=== PATIENT | female | born 1940 | race Caucasian/White ===

== ENCOUNTER 2017-03-20 02:17 | Inpatient (IN) ==
[2017-03-20] MEDS ORDERED: SODIUM CHLORIDE 0.9% 500 ML IV STA (02:52)
--- NOTE | 2017-03-20 02:59 | Emergency Department Note ---
Estelle Quiroz Rolonda, am scribing for, and in the presence of, Chandan Mneeses MD 02:56. Gideon Quiroz Charles R, MD, personally performed the services described in this documentation, ascribed by Juan Antonio Mccabe in my presence, and it is both accurate and complete . Arrival - Arrival Chief Complaint: Weakness Stated Complaint: Weakness/ nausea vomiting ED Nursing Triage Note: Patient complains of weakness and nausea that has been going on since Sunday. 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 Last chemotherapy was SundayMarch 14. Dr. Beltran is patient's oncologist. Mode of Arrival: Stretcher Limitations: No Limitations Source: Patient, Old Records Reviewed, RN Notes Reviewed Time Seen by Provider: 03/20/17 02:38 - History of Present Illness HPI Narrative: Pt is a 76 y/o female who presents to the ED via EMS for further evaluation of generalized weakness. Pt has a PMHx of ovarian CA w/ metastasis to the colon, kidney, liver and bladder and Chemotherapy x1 month. Pt states that last chemoTx was 03/14/2017. Pt states that she usually feels weak when she is moving around at home and s/p Chemotherapy. She states that she got up to use the bathroom and felt like the room was spinning. Pt confirms feeing "jittery" and as if her bladder is always full due to hernia but denies fever. She is f/u by Dr. Beltran. No other complaint/pain in ED. Onset (ago): day(s) Consistency: constant Severity: moderate Severity scale (1-10): 4 Date of Last Menstrual Period: hysterectomy Allergies/Adverse Reactions: Allergies Allergy/AdvReac Type Severity Reaction Status Date / Time nitrofurantoin Allergy HIVES Verified 05/23/15 02:19 [From Macrobid] Penicillins Allergy HIVES Verified 05/23/15 02:19 spironolactone Allergy HIVES Verified 05/23/15 02:19 Home Medications: Home Medications Medication Instructions Recorded Confirmed Type Amlodipine Besylate 5 mg PO DAILY 05/23/15 05/23/15 History Aspirin [Ecotrin] 81 mg PO DAILY 05/23/15 05/23/15 History Furosemide 20 mg PO DAILY 05/23/15 05/23/15 History Lisinopril/Hydrochlorothiazide 20 mg PO DAILY 05/23/15 05/23/15 History [Lisinopril-Hctz 20-12.5 mg Tab] Ranitidine Tab [Zantac Tab] 150 mg PO DAILY 05/23/15 05/23/15 History Travoprost 0.004% Oph Soln 1 drop BOTH EYES BEDTIME 05/23/15 05/23/15 History [Travatan Z] cephALEXin [Keflex] 250 mg PO Q8HR #20 capsule 05/26/15 Rx Review of System - Review of System 12 point system: reviewed and no additional remarkable complaints except as stated - Review of System Constitutional: Present: weakness. Absent: chills, fever Eyes: Absent: discharge, redness Head/Ears/Nose/Throat: Absent: earache, epistaxis Respiratory: Absent: cough, respiratory distress Cardiovascular: Absent: chest pain, dyspnea on exertion Gastrointestinal: Absent: abdominal pain Genitourinary female: Present: frequency (feels as if bladder is always full) Musculoskeletal: Absent: arm pain, back pain Skin: Absent: rash Neurological: Present: vertigo. Absent: headache Psychiatric: Absent: anxiety Endocrine: Absent: cold intolerance Hematological/Lymphatic: Absent: easy bleeding Allergic/Immunologic: Absent: facial swelling Medical,Surgical,& Family Hx - Medical History Cardio: History of: CHF (followed in [place], unknown EF), Hypertension Endocrine: No history of: Diabetes Mellitus (IDDM), Diabetes Mellitus (NIDDM) Respiratory: No history of: COPD Gastrointestinal: History of: Diverticulitis/ Diverticulosis, GERD Musculoskeletal: History of: Back/Neck Problems - Surgical History Abdominal Surgeries: Surgical HX of: Appendectomy, Colonoscopy, EGD Reproductive Surgeries: Surgical HX of;: Hysterectomy (partial) Orthopedic Surgeries: Surgical HX of;: Spinal Surgery - Family History Family History: Reports;: Family Cancer, Family Heart Disease, Family Hypertension, Family Stroke - Social History Smoking Status: Never smoker Frequency of Alcohol Use: None Type of Drug Use: None Exam Vital Signs: Vital Signs Temperature 97.4 F L 03/20/17 02:20 Pulse Rate 78 03/20/17 03:23 Respiratory Rate 20 03/20/17 03:23 Blood Pressure 106/63 03/20/17 03:23 O2 Sat by Pulse Oximetry 98 03/20/17 03:23 - General General appearance: alert, in no apparent distress, other (chronically ill) - Head Head exam: Present: atraumatic, normocephalic - Eye Eye exam: Present: PERRL, EOMI - ENT ENT exam: Present: mucous membranes moist. Absent: mucous membranes dry - Neck Neck exam: Present: full ROM. Absent: tenderness - Chest Chest inspection: Present: symmetric chest wall rise. Absent: tenderness - Respiratory Respiratory exam: Present: normal lung sounds bilaterally. Absent: wheezes - Cardiovascular Cardiovascular exam: Present: regular rate, normal rhythm, normal heart sounds. Absent: bradycardia - Abdominal Exam Abdominal exam: Present: soft, tenderness (suprapubic tenderness), hernia (non incarcerated hernia), other (suprapubic fullness) - Extremities Exam Extremities exam: Present: full ROM. Absent: tenderness - Back Exam Back exam: Present: full ROM. Absent: tenderness - Neurological Exam Neurological exam: Present: alert, oriented X3, CN II-XII intact - Psychiatric Psychiatric exam: Present: normal affect, normal mood - Skin Skin exam: Present: warm, dry, intact, normal color. Absent: rash Course - Consultations Consultation #1: Dr Beltran consult he said admit the patient observation he said to give her Merrem is aware the allergies wants to try anyway, she started taking Keflex with no allergy symptoms Time: 04:23 Results - Labs CBC & BMP: 03/20/17 03:06 03/20/17 03:06 Lab Results: I have reviewed the patients labs Labs: Laboratory Tests 03/20/17 03/20/17 03/20/17 03:06 03:06 03:06 WBC 7.6 RBC 4.19 Hgb 13.2 Hct 38.4 Plt Count 181 INR 0.9 PT Patient/Control Mix 9.7 Urine Color [place] Urine pH 7.0 Ur Specific [place] 1.008 Urine Protein Negative Urine Glucose (UA) Negative Urine Ketones Negative Urine Blood Negative Urine Nitrate Positive H Urine Bilirubin Negative Urine Urobilinogen 4.0 H Urine Leukocytes Moderate H Urine WBC 31 Ur Squamous Epith Cells Occasional Ur Renal Epithelial Cell Occasional Urine Bacteria Moderate Urine Mucus Occasional Ur Culture Indicated? Results to follow Laboratory Tests 03/20/17 03:06 Serum Alcohol < 15 L Disposition Clinical Impression: Near syncope, Generalized weakness, History ovarian cancer with metastases, UTI (urinary tract infection) Case discussed with: patient, patient's family Disposition: Still a Patient Condition: Stable Time of Disposition: 04:24
--- NOTE | 2017-03-20 03:23 | EKG Report ---
Stationary ECG Study [facility] ER Test Date: 03/20/2017 3:21:43 AM Pat Name: TALAT PHIPPS Department: Room: Gender: F Second Mate: : 1940 Requested by: Chandan Thomas Order Number: [id number] Dalia MD: KARO BELL Intervals [place] Rate: 63 P: 76 IN: 210 QRS: 37 QRSD: 110 T: 28 QT: 441 QTc: 448 Interpretive Statements SINUS RHYTHM WITH FIRST-DEGREE A-V B AT 63 BPM Electronically Signed On 03-20-17 08:21:57 CDT by KARO BELL [email or web address]
[2017-03-20 03:28] LABS: INR 0.9; PT Patient Result 9.7 SECS
[2017-03-20 03:33] LABS: Apearance,Urine CLEAR (Clear); Bacteria,Urine Moderate /HPF (Few); Basophils % 0.5 % (0.0-0.8); Bilirubin,Urine Negative (Negative); Blood, Urine Negative (Negative); Eosinophils # 0.2 10*3/uL (0.0-0.87); Eosinophils % 2.9 % (0.00-10.9); Glucose,Urine (UA) Negative (Negative); Hematocrit 38.4 VOL% (35.7-47.0); Hemoglobin 13.2 GM/DL (12.0-16.0); Immature Granulocytes % 0.1 %; Immature Granulocytes Absolute 0.01 #; Ketones,Urine Negative (Negative); Lymphocytes # 2.6 10*3/uL (1.4-4.0); Lymphocytes % 34.2 % (21.3-54.2); Mean Corpuscular HGB Conc 34.4 GM/DL (32-36); Mean Corpuscular Hemoglobin 32 PG (27-34); Mean Corpuscular Volume 91.6 FL (87-102); Mean Platelet Volume 10.3 FL (9.6-12.0); Monocytes # 0.2 10*3/uL (0.11-0.8); Monocytes % 2.4 % (1.7-12.7); Mucus,Urine Occasional /LPF (Occasional); Neutrophils # 4.6 10*3/uL (1.4-7.4); Neutrophils % 59.9 % (38.7-73.9); Nitrite,Urine Positive (Negative); Platelet Count 181 T/CUMM (130-400); Protein,Urine Negative; Red Blood Count 4.19 MC/CUMM (3.8-5.5); Red Cell Distribution Width 13.5 % (9.3-17.3); Renal Epithelial Cells,Urine Occasional /HPF (<1); Squamous Epithelial Cell,Urine Occasional /HPF (0-10); Urine Specific Gravity 1.008 (1.001-1.035); WBC,Urine 31 /HPF (0-6); White Blood Count 7.6 T/CUMM (4-12)
[2017-03-20 03:35] LABS: Urine Color Orange (Yellow)
[2017-03-20 03:40] LABS: Alanine Aminotransferase 14 U/L (13-56); Albumin 3.3 G/DL (3.4-5.0); Alkaline Phosphatase 47 U/L (45-117); Aspartate Amino Transferase 20 U/L (0-37); Blood Urea Nitrogen 24 MG/DL (7-18); Calcium 8.7 MG/DL (8.5-10.1); Glucose 100 MG/DL (74-106); Magnesium 1.9 MG/DL (1.8-2.4); Osmolality,Calculated 276.8 MOS/KG (273-304); Potassium 3.7 MMOL/L (3.5-5.1); Sodium 137 MMOL/L (136-145); Total Protein 6.5 G/DL (6.4-8.3); Troponin I Only < 0.015 NG/ML (0.00-0.045)
[2017-03-20] MEDS ORDERED: MEROPENEM 1,000 MG in SODIUM CHLORIDE 0.9% 100 ML IV STA (04:22)
[2017-03-20] MEDS ORDERED: MEROPENEM 1,000 MG VIAL IV ONE (04:37)
[2017-03-20] MEDS ORDERED: ACETAMINOPHEN 325 MG TABLET PO PRN (04:54)
[2017-03-20] MEDS ORDERED: chlorproMAZINE INJ 25 MG in SODIUM CHLORIDE 0.9% 100 ML IV PRN (04:54)
[2017-03-20] MEDS ORDERED: MYLANTA/LIDO VISC 2:1 300 ML BOTTLE SWISH/SWAL PRN (04:54)
[2017-03-20] MEDS ORDERED: chlorproMAZINE INJ 50 MG in SODIUM CHLORIDE 0.9% 100 ML IV PRN (04:54)
[2017-03-20] MEDS ORDERED: MAGNESIUM HYDROXIDE SUSP 30 ML UDCUP PO PRN (04:54)
[2017-03-20] MEDS ORDERED: MYLANTA/LIDO VISC 2:1 300 ML BOTTLE SWISH/SPIT PRN (04:54)
[2017-03-20] MEDS ORDERED: LOPERAMIDE 2 MG CAPSULE PO PRN ×2 (04:54)
[2017-03-20] MEDS ORDERED: ALPRAZolam 0.25 MG TABLET PO PRN (04:54)
[2017-03-20] MEDS ORDERED: ALUMINUM/MAGNES/SIMETH MAX STR 30 ML UDCUP PO PRN (04:54)
[2017-03-20] MEDS ORDERED: LACTULOSE 20 GM/30 ML UDCUP PO PRN (04:54)
[2017-03-20] MEDS ORDERED: traMADol 50 MG TABLET PO PRN (04:54)
[2017-03-20] MEDS ORDERED: TEMAZEPAM 7.5 MG CAPSULE PO PRN (04:54)
[2017-03-20] MEDS ORDERED: guaiFENesin 200 MG/10 ML UDCUP PO PRN (04:54)
[2017-03-20] MEDS ORDERED: ONDANSETRON 4 MG/2 ML VIAL IV PRN (04:54)
[2017-03-20] MEDS ORDERED: PROMETHAZINE INJ 25 MG in SODIUM CHLORIDE 0.9% 50 ML IV PRN (04:54)
[2017-03-20] MEDS ORDERED: chlorproMAZINE 25 MG TABLET PO PRN (04:54)
[2017-03-20] MEDS ORDERED: diphenhydrAMINE CAP 25 MG CAPSULE PO PRN (04:54)
[2017-03-20] MEDS ORDERED: BENZTROPINE 2 MG/2 ML AMP IV PRN (04:54)
[2017-03-20] MEDS: SODIUM CHLORIDE 0.9% 1,000 ML IV SCH ×2 (05:40→16:02)
[2017-03-20 06:12] LABS: Basophils % 0.6 % (0.0-0.8); Eosinophils # 0.2 10*3/uL (0.0-0.87); Eosinophils % 2.9 % (0.00-10.9); Hematocrit 38.9 VOL% (35.7-47.0); Hemoglobin 13.2 GM/DL (12.0-16.0); Immature Granulocytes % 0.3 %; Immature Granulocytes Absolute 0.02 #; Lymphocytes # 2.5 10*3/uL (1.4-4.0); Lymphocytes % 34.7 % (21.3-54.2); Mean Corpuscular HGB Conc 33.9 GM/DL (32-36); Mean Corpuscular Hemoglobin 31 PG (27-34); Mean Corpuscular Volume 92.4 FL (87-102); Mean Platelet Volume 10.4 FL (9.6-12.0); Monocytes # 0.3 10*3/uL (0.11-0.8); Monocytes % 4.2 % (1.7-12.7); Neutrophils # 4.1 10*3/uL (1.4-7.4); Neutrophils % 57.3 % (38.7-73.9); Platelet Count 167 T/CUMM (130-400); Red Blood Count 4.21 MC/CUMM (3.8-5.5); Red Cell Distribution Width 13.5 % (9.3-17.3); White Blood Count 7.2 T/CUMM (4-12)
[2017-03-20 06:44] LABS: Albumin 3.1 G/DL (3.4-5.0); Bilirubin,Total 0.8 MG/DL (0.2-1.0); Calcium 8.2 MG/DL (8.5-10.1); Osmolality,Calculated 277.7 MOS/KG (273-304); Potassium 4.1 MMOL/L (3.5-5.1); Total Protein 5.9 G/DL (6.4-8.3); Uric Acid 5.4 MG/DL (2.6-6.0)
[2017-03-20 07:17] LABS: Eosinophils 3 % (0-10); Hypochromasia 1+; Lymphocytes 39 % (20-55); Platelet Estimate Normal; Segmented Neutrophils 52 % (50-85); Total Cells Counted 100
--- NOTE | 2017-03-20 08:01 | XRay Report ---
XR chest 1V portable Indication: SOB Comparison: Chest x-ray dated May 25, 2015 Technique: Single frontal view of the chest. Findings: The cardiomediastinal silhouette is stable in configuration. Chronic change of the lungs without focal consolidation, pleural effusion, or pneumothorax. Right-sided port catheter again noted. Visualized osseous and surrounding soft tissue structures appear grossly unchanged. IMPRESSION: Stable chest x-ray without acute cardiopulmonary process demonstrated. PROCEDURE INTERPRETED AT [facility] DEPARTMENT OF RADIOLOGY Final Report Signed by: Dr Denny Bowser
[2017-03-20] MEDS: PANTOPRAZOLE 40 MG VIAL IV SCH (08:38)
[2017-03-20] MEDS: ENOXAPARIN 40 MG/0.4 ML SYRINGE SUBCUT SCH (08:40)
[2017-03-20] MEDS ORDERED: ONDANSETRON ODT 4 MG TABLET PO PRN (09:27)
[2017-03-20] MEDS ORDERED: BISACODYL 5 MG TABLET PO PRN (09:27)
[2017-03-20] MEDS ORDERED: PROCHLORPERAZINE 10 MG TABLET PO PRN (09:27)
--- NOTE | 2017-03-20 09:31 | Oncology History&Physical ---
Assessment and Plan (1) Peritoneal carcinomatosis Status: Acute Assessment and plan: We will continue antibiotics while awaiting urine culture results. Current Visit: No History of Present Illness Chief complaint: Weakness History of present illness: Ms. Eller is a 76 year old female With ovarian cancer on extended maintenance therapy with monthly paclitaxel and bevacizumab. The patient has chronic urinary tract infections and has seen a gynecologic urological specialist in [place]. She was on Bactrim as prophylaxis. 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 She is comfortable on examination this morning after some IV fluids were given. She is also received meropenem based on most recent urine culture dated 2016. This showed a highly resistant E. coli organism. Home Medications Medication Instructions Recorded Confirmed Type Aspirin [Ecotrin] 81 mg PO DAILY 05/23/15 03/20/17 History Ranitidine Tab [Zantac Tab] 150 mg PO DAILY 05/23/15 03/20/17 History Atenolol [Tenormin] 50 mg PO DAILY 03/20/17 03/20/17 History Bisacodyl Tab [Dulcolax Tab] 10 mg PO DAILY PRN 03/20/17 03/20/17 History Chlorthalidone 25 mg PO DAILY 03/20/17 03/20/17 History HYDROcodone/ACETAMIN 7.5-325 1 tablet PO Q6H PRN 03/20/17 03/20/17 History [[place] 7.5-325] Loratadine/Pseud 5-120 (12 Hr) 1 tablet PO Q12HR 03/20/17 03/20/17 History [Claritin D 12 Hour] Ondansetron [Ondansetron Odt] 8 mg PO Q8HR PRN 03/20/17 03/20/17 History Phenazopyridine HCl 200 mg PO TID 03/20/17 03/20/17 History Prochlorperazine Tab [Compazine 10 mg PO Q4H PRN 03/20/17 03/20/17 History Tab] Trimethoprim 100 mg PO DAILY 03/20/17 03/20/17 History Allergies Allergy/AdvReac Type Severity Reaction Status Date / Time nitrofurantoin Allergy HIVES Verified 05/23/15 02:19 [From Macrobid] Penicillins Allergy HIVES Verified 05/23/15 02:19 spironolactone Allergy HIVES Verified 05/23/15 02:19 Medical,Surgical,& Family Hx - Medical History Cardio: History of: CHF (followed in [place], unknown EF), Hypertension Endocrine: No history of: Diabetes Mellitus (IDDM), Diabetes Mellitus (NIDDM) Respiratory: No history of: COPD Genitourinary: History of: Recurring Urinary Tract Infections Gastrointestinal: History of: Diverticulitis/ Diverticulosis, GERD Musculoskeletal: History of: Back/Neck Problems - Surgical History Abdominal Surgeries: Surgical HX of: Appendectomy, Colonoscopy, EGD Reproductive Surgeries: Surgical HX of;: Hysterectomy (partial) Orthopedic Surgeries: Surgical HX of;: Spinal Surgery - Family History Family History: Reports;: Family Cancer, Family Heart Disease, Family Hypertension, Family Stroke - Social History Smoking Status: Never smoker Frequency of Alcohol Use: None Type of Drug Use: None - Constitutional Constitutional: Present: fatigue, fever(s), malaise, weakness. Absent: increased appetite, weight gain - EENT Eye: Absent: loss of vision Ears: Absent: ear discharge, ear pain Nose, mouth and throat: Absent: neck mass, neck pain, odynophagia, sore throat - Cardiovascular Cardiovascular ROS IM: Absent: edema, orthopnea - Respiratory Respiratory: Absent: dyspnea, hemoptysis Exam - Constitutional Vitals: Period Temp Pulse Resp BP Sys/Mariscal Pulse Ox Last 24 Hr 96.7 F-97.8 F 60-78 18-20 106-188/63-97 98-100 General appearance: normal weight, no acute distress - Head Head Exam: Present: normal inspection, normocephalic - Eye Eye Exam: Present: EOMI. Absent: conjunctival injection Pupils: Present: PERRL, normal accommodation - ENT ENT exam: Present: normal external ear exam - Neck Neck exam: Absent: tenderness, thyromegaly - Respiratory Respiratory exam: Present: CTAB. Absent: accessory muscle use, chest wall tenderness - Cardiovascular Cardiovascular exam: Present: RRR. Absent: systolic murmur - GI/Abdominal GI/Abdominal exam: Absent: ascites, distended, firm, guarding - Neurological Exam Neurological exam: Present: alert, oriented X3 Results - Labs CBC & BMP: 03/20/17 05:46 03/20/17 05:46
[2017-03-20] MEDS: ASPIRIN EC 81 MG TABLET PO SCH (10:42)
[2017-03-20] MEDS: MEROPENEM 500 MG in SODIUM CHLORIDE 0.9% 100 ML IV SCH ×2 (13:16→20:47)
[2017-03-20] MEDS: PHENAZOPYRIDINE 95 MG TABLET PO SCH ×2 (16:09→20:46)
[2017-03-20] MEDS ORDERED: LORATADINE/PSEUDOEPH 5-120 MG (12 HR) TABLET PO SCH (21:00)
[2017-03-21] MEDS: SODIUM CHLORIDE 0.9% 1,000 ML IV SCH ×2 (01:23→06:12)
[2017-03-21] MEDS: MEROPENEM 500 MG in SODIUM CHLORIDE 0.9% 100 ML IV SCH ×3 (04:53→21:06)
[2017-03-21] MEDS: LORATADINE 10 MG TABLET PO SCH (08:28)
[2017-03-21] MEDS: PSEUDOEPHEDRINE 30 MG TABLET PO SCH ×3 (08:28→21:06)
[2017-03-21] MEDS: PHENAZOPYRIDINE 95 MG TABLET PO SCH ×3 (08:28→21:06)
[2017-03-21] MEDS: CHLORTHALIDONE 25 MG TABLET PO SCH (08:29)
[2017-03-21] MEDS: ATENOLOL 50 MG TABLET PO SCH (08:29)
[2017-03-21] MEDS: ASPIRIN EC 81 MG TABLET PO SCH (08:29)
[2017-03-21] MEDS: FAMOTIDINE 20 MG TABLET PO SCH (08:29)
[2017-03-21] MEDS: PANTOPRAZOLE 40 MG VIAL IV SCH (08:32)
[2017-03-21] MEDS: ENOXAPARIN 40 MG/0.4 ML SYRINGE SUBCUT SCH (08:34)
--- NOTE | 2017-03-21 08:35 | Oncology Progress Note ---
Assessment and Plan (1) Peritoneal carcinomatosis Status: Acute Assessment and plan: We will continue antibiotics while awaiting urine culture results. Current Visit: No Oncology Subjective PN Interval history: Patient admitted with hypotension chills and UTI. She is improved. I will discontinue her IV fluids. Her oral intake is adequate at this time. She is tolerating meropenem without any side effects. I have encouraged her to ambulate today. Hopefully she can be discharged tomorrow once microbiology results are reviewed Exam - Constitutional Vitals: Period Temp Pulse Resp BP Sys/Mariscal Pulse Ox Last 24 Hr 96.8 F-98.6 F 59-75 18-20 132-186/65-81 91-99 Results - Labs CBC & BMP: 03/20/17 05:46 03/20/17 05:46
[2017-03-21] MEDS: GABAPENTIN 300 MG CAPSULE PO SCH ×2 (10:08→21:06)
[2017-03-22] MEDS: PSEUDOEPHEDRINE 30 MG TABLET PO SCH ×2 (03:44→08:54)
[2017-03-22] MEDS: MEROPENEM 500 MG in SODIUM CHLORIDE 0.9% 100 ML IV SCH (03:46)
--- NOTE | 2017-03-22 08:34 | Discharge Summary ---
Hospital Course - Hospital Course Hospital Course: Patient with ovarian cancer on maintenance therapy admitted with weakness. Positive findings for urinary tract infection in the setting of multiple prior UTIs. Preliminary microbiology at this time reveals E. coli. We are still waiting for the final sensitivities to be put in. The patient was challenged with meropenem and tolerated this well given her history of penicillin allergy. This was a very distant occurrence and resulted only in hives and rash. At this time I am entertaining further oral penicillin dosing but will await sensitivities. She has oncology follow-up that she will keep that was previously scheduled. Diagnosis - Discharge Diagnosis (1) Peritoneal carcinomatosis Status: Acute Discharge Plan - Discharge Medications No Action Ranitidine Tab [Zantac Tab] 150 mg PO DAILY Aspirin [Ecotrin] 81 mg PO DAILY Bisacodyl Tab [Dulcolax Tab] 10 mg PO DAILY PRN PRN Reason: Constipation Ondansetron [Ondansetron Odt] 8 mg PO Q8HR PRN PRN Reason: Nausea Loratadine/Pseud 5-120 (12 Hr) [Claritin D 12 Hour] 1 tablet PO Q12HR Atenolol [Tenormin] 50 mg PO DAILY HYDROcodone/ACETAMIN 7.5-325 [[place] 7.5-325] 1 tablet PO Q6H PRN PRN Reason: Pain Chlorthalidone 25 mg PO DAILY Prochlorperazine Tab [Compazine Tab] 10 mg PO Q4H PRN PRN Reason: Nausea Trimethoprim 100 mg PO DAILY Phenazopyridine HCl 200 mg PO TID Gabapentin 300 mg PO BID Furosemide 20 mg PO ONCE Temazepam [Restoril] 15 mg PO BEDTIME - Follow Up or Referral - Forms/Instructions Exam - Constitutional Vitals: Period Temp Pulse Resp BP Sys/Mariscal Pulse Ox Last 24 Hr 97.0 F-98.0 F 60-71 16-20 141-155/65-82 95-98 Discharge Results Procedures and tests throughout hospitalization: Pending Orders 03/20/17 Urine Culture Routine 03/20/17 03:36 Blood Culture Stat Labs on day of discharge: Preliminary micro results at discharge 03/20/17 Unknown Urine Culture - Preliminary Urine,Voided Gram Negative Rods 03/20/17 03:36 Blood Culture - Preliminary Blood No growth at 1 day 03/20/17 03:06 Blood Culture - Preliminary Blood No growth at 1 day DS: Provider Date of admission: 03/21/17 10:49 Primary care physician: . No PCP Attending physician on admission: Vance Beltran MD Discharging clinician: Vance Beltran MD
[2017-03-22] MEDS: GABAPENTIN 300 MG CAPSULE PO SCH (08:47)
[2017-03-22] MEDS: CHLORTHALIDONE 25 MG TABLET PO SCH (08:47)
[2017-03-22] MEDS: PHENAZOPYRIDINE 95 MG TABLET PO SCH (08:47)
[2017-03-22] MEDS: LORATADINE 10 MG TABLET PO SCH (08:47)
[2017-03-22] MEDS: ENOXAPARIN 40 MG/0.4 ML SYRINGE SUBCUT SCH (08:48)
[2017-03-22] MEDS: FAMOTIDINE 20 MG TABLET PO SCH (08:48)
[2017-03-22] MEDS: ASPIRIN EC 81 MG TABLET PO SCH (08:48)
[2017-03-22] MEDS: PANTOPRAZOLE 40 MG VIAL IV SCH (08:48)
[2017-03-22] MEDS: ATENOLOL 50 MG TABLET PO SCH (08:48)
[2017-03-22 11:18] VITALS: BP 153/73
[2017-03-22] MEDS ORDERED: HEPARIN LOCK FLUSH 500 UNIT/5 ML SYRINGE IV ONE (12:33)
== END 2017-03-22 13:08 | disposition home or self-care (01) | DRG 690 ==
LOC: EDBD → EDUNIT# → N.EDINP 02:17 → N.ED 02:17 → N.4E 04:45
PROVIDERS: ADMIT Specialist; ATTEND Specialist

== ENCOUNTER 2018-09-06 11:14 | Observation (INO) ==
[2018-09-06 12:09] LABS: Basophils % 0.5 % (0.0-0.8); Eosinophils # 0.1 10*3/uL (0.0-0.87); Eosinophils % 2.6 % (0.00-10.9); Hematocrit 23.6 VOL% (35.7-47.0); Hemoglobin 7.9 GM/DL (12.0-16.0); Immature Granulocytes % 0.4 %; Immature Granulocytes Absolute 0.02 #; Mean Corpuscular HGB Conc 33.5 GM/DL (32-36); Mean Corpuscular Hemoglobin 32 PG (27-34); Mean Corpuscular Volume 94.4 FL (87-102); Monocytes # 0.6 10*3/uL (0.11-0.8); Monocytes % 10.1 % (1.7-12.7); Neutrophils # 2.8 10*3/uL (1.4-7.4); Neutrophils % 50.4 % (38.7-73.9); Platelet Count 239 T/CUMM (130-400); Red Cell Distribution Width 17.2 % (9.3-17.3); White Blood Count 5.5 T/CUMM (4-12)
[2018-09-06 12:19] LABS: INR 1.1; PT Patient Result 11.6 SECS; Partial Thromboplastin Time 29.9 SECS (0-40)
[2018-09-06] MEDS ORDERED: ACETAMINOPHEN 325 MG TABLET PO PRN (14:15)
[2018-09-06] MEDS ORDERED: FUROSEMIDE 40 MG/4 ML VIAL IV ONE ×2 (14:15→23:30)
[2018-09-06] MEDS ORDERED: ZALEPLON 5 MG CAPSULE PO PRN (14:15)
[2018-09-06] MEDS ORDERED: SODIUM CHLORIDE 0.9% 1,000 ML IV PRN (14:15)
[2018-09-06] MEDS ORDERED: PROMETHAZINE 25 MG/1 ML VIAL IM PRN (14:15)
[2018-09-06] MEDS ORDERED: ONDANSETRON 4 MG/2 ML VIAL IV PRN (14:15)
[2018-09-06] MEDS ORDERED: MAGNESIUM SULF RIDER 4 GM in PREMIX 1 EACH IV PRN (14:15)
[2018-09-06] MEDS ORDERED: MAGNESIUM SULF RIDER 2 GM in PREMIX 1 EACH IV PRN (14:15)
[2018-09-06] MEDS ORDERED: MORPHINE 4 MG/1 ML VIAL IV PRN (14:15)
[2018-09-06] MEDS ORDERED: POTASSIUM CHLORIDE RIDER 10 MEQ in PREMIX 1 EACH IV PRN (14:15)
[2018-09-06] MEDS ORDERED: diphenhydrAMINE 50 MG/1 ML VIAL IV PRN (14:15)
[2018-09-06] MEDS ORDERED: GABAPENTIN 300 MG CAPSULE PO PRN (14:19)
[2018-09-06] MEDS ORDERED: PHENOL 1.4% THROAT SPRAY 177 ML BOTTLE PO PRN (14:19)
[2018-09-06 15:13] LABS: Albumin 4.1 G/DL (3.4-5.0); Bilirubin,Total 0.4 MG/DL (0.2-1.0); Calcium 8.9 MG/DL (8.5-10.1); Potassium 3.4 MMOL/L (3.5-5.1); Total Protein 6.9 G/DL (6.4-8.3)
[2018-09-06] MEDS ORDERED: FAMOTIDINE 20 MG TABLET PO PRN (16:11)
[2018-09-06] MEDS: FUROSEMIDE 20 MG/2 ML VIAL IV SCH (18:22)
[2018-09-06] MEDS: MUPIROCIN 2% OINT 22 GM TUBE TOP SCH (20:48)
[2018-09-06] MEDS ORDERED: DOCUSATE SODIUM 100 MG CAPSULE PO SCH (21:00)
[2018-09-06] MEDS ORDERED: CHLORTHALIDONE 25 MG TABLET PO SCH (21:00)
[2018-09-06] MEDS ORDERED: CEPHALEXIN 250 MG PO SCH (21:00)
[2018-09-06] MEDS ORDERED: ATENOLOL 50 MG TABLET PO SCH (21:00)
[2018-09-07 06:05] LABS: Basophils % 0.8 % (0.0-0.8); Eosinophils # 0.2 10*3/uL (0.0-0.87); Hematocrit 28.5 VOL% (35.7-47.0); Hemoglobin 9.6 GM/DL (12.0-16.0); Immature Granulocytes % 0.6 %; Immature Granulocytes Absolute 0.03 #; Lymphocytes % 38.2 % (21.3-54.2); Mean Corpuscular HGB Conc 33.7 GM/DL (32-36); Mean Corpuscular Hemoglobin 31 PG (27-34); Mean Corpuscular Volume 91.3 FL (87-102); Mean Platelet Volume 10.2 FL (9.6-12.0); Monocytes # 0.7 10*3/uL (0.11-0.8); Monocytes % 12.7 % (1.7-12.7); Neutrophils # 2.4 10*3/uL (1.4-7.4); Neutrophils % 44.7 % (38.7-73.9); Platelet Count 189 T/CUMM (130-400); Red Blood Count 3.12 MC/CUMM (3.8-5.5); Red Cell Distribution Width 17.3 % (9.3-17.3); White Blood Count 5.3 T/CUMM (4-12)
[2018-09-07 06:21] LABS: Albumin 3.6 G/DL (3.4-5.0); Bilirubin,Total 0.8 MG/DL (0.2-1.0); Calcium 8.4 MG/DL (8.5-10.1); Potassium 3.1 MMOL/L (3.5-5.1); Total Protein 6.6 G/DL (6.4-8.3)
[2018-09-07] MEDS ORDERED: POTASSIUM CHLORIDE 20 MEQ TABLET PO ONE (08:31)
[2018-09-07] MEDS: FUROSEMIDE 20 MG/2 ML VIAL IV SCH (08:56)
[2018-09-07] MEDS ORDERED: ENOXAPARIN 40 MG/0.4 ML SYRINGE SUBCUT SCH (09:00)
[2018-09-07] MEDS ORDERED: PANTOPRAZOLE 40 MG TABLET PO SCH (09:00)
[2018-09-07] MEDS: MUPIROCIN 2% OINT 22 GM TUBE TOP SCH (10:36)
[2018-09-07 10:42] VITALS: BP 117/54
== END 2018-09-07 12:10 | disposition home or self-care (01) ==
LOC: N.ED 11:14 → N.EDINP 11:14 → N.4E 15:59
PROVIDERS: ADMIT Family Medicine; ATTEND Family Medicine

== ENCOUNTER 2019-03-11 21:44 | Inpatient (IN) ==
[2019-03-11] MEDS ORDERED: ONDANSETRON 4 MG/2 ML VIAL IV STA (22:33)
[2019-03-11] MEDS ORDERED: SODIUM CHLORIDE 0.9% 500 ML IV STA (22:33)
[2019-03-11] MEDS ORDERED: ALUM/MAG/SIMETH/LIDO VISC 1:1 30 ML BOTTLE PO STA (22:33)
[2019-03-11 22:41] LABS: Basophils # 0.1 10*3/uL (0.0-0.2); Basophils % 0.5 % (0.0-0.8); Eosinophils % 0.1 % (0.00-10.9); Hematocrit 31.3 VOL% (35.7-47.0); Hemoglobin 9.9 GM/DL (12.0-16.0); Immature Granulocytes % 2.2 %; Immature Granulocytes Absolute 0.32 #; Lymphocytes # 0.7 10*3/uL (1.4-4.0); Lymphocytes % 4.7 % (21.3-54.2); Mean Corpuscular HGB Conc 31.6 GM/DL (32-36); Mean Corpuscular Volume 90.7 FL (87-102); Monocytes % 4.3 % (1.7-12.7); Neutrophils % 88.2 % (38.7-73.9); Platelet Count 208 T/CUMM (130-400); Red Blood Count 3.45 MC/CUMM (3.8-5.5); Red Cell Distribution Width 15.4 % (9.3-17.3); White Blood Count 14.8 T/CUMM (4-12)
[2019-03-11 23:18] LABS: Apearance,Urine CLEAR (Clear); Bilirubin,Urine Negative (Negative); Blood, Urine Moderate mg/dL (Negative); Glucose,Urine (UA) Negative (Negative); Hyaline Casts,Urine 6 /LPF (0-3); Ketones,Urine 5 mg/dL (Negative); Mucus,Urine Occasional /LPF (Occasional); Nitrite,Urine Negative (Negative); Protein,Urine 30 MG/DL; RBC,Urine 147 /HPF (0-4); Squamous Epithelial Cell,Urine Occasional /HPF (0-10); Urine Color Amber (Yellow); Urine Specific Gravity 1.023 (1.001-1.035)
[2019-03-11 23:21] LABS: Albumin 2.8 G/DL (3.4-5.0); Bilirubin,Total 0.6 MG/DL (0.2-1.0); Calcium 8.6 MG/DL (8.5-10.1); Osmolality,Calculated 275.8 MOS/KG (273-304); Total Protein 6.9 G/DL (6.4-8.3)
[2019-03-11 23:37] LABS: Anisocytosis Slight; Lymphocytes 3 % (20-55); Microcytosis 1+; Segmented Neutrophils 93 % (50-85); Total Cells Counted 100
[2019-03-11 23:38] LABS: Ovalocytes Slight; Platelet Estimate Normal
[2019-03-11] MEDS ORDERED: NICOTINE 21 MG/24 HR PATCH TRANSDERM PRN (23:56)
[2019-03-11] MEDS ORDERED: ACETAMINOPHEN 325 MG TABLET PO PRN (23:56)
[2019-03-11] MEDS ORDERED: diphenhydrAMINE CAP 25 MG CAPSULE PO PRN (23:56)
[2019-03-11] MEDS ORDERED: BISACODYL 5 MG TABLET PO PRN (23:56)
[2019-03-12] MEDS: SODIUM CHLOR 0.9% KCL 40 MEQ 40 MEQ/1,000 ML BAG IV SCH ×2 (02:36→12:33)
[2019-03-12] MEDS: PROMETHAZINE 25 MG/1 ML VIAL IM PRN (02:38)
[2019-03-12] MEDS: MORPHINE 4 MG/1 ML VIAL IV PRN ×2 (02:42→13:53)
[2019-03-12] MEDS: ENOXAPARIN 40 MG/0.4 ML SYRINGE SUBCUT SCH (10:24)
[2019-03-12] MEDS: PANTOPRAZOLE 40 MG TABLET PO SCH (10:25)
[2019-03-12] MEDS: ONDANSETRON 4 MG/2 ML VIAL IV PRN (10:25)
[2019-03-13] MEDS: SODIUM CHLOR 0.9% KCL 40 MEQ 40 MEQ/1,000 ML BAG IV SCH ×3 (00:28→21:37)
[2019-03-13] MEDS: ONDANSETRON 4 MG/2 ML VIAL IV PRN (03:05)
[2019-03-13] MEDS: MORPHINE 4 MG/1 ML VIAL IV PRN (03:05)
[2019-03-13 05:39] LABS: Basophils # 0.1 10*3/uL (0.0-0.2); Basophils % 0.8 % (0.0-0.8); Eosinophils # 0.1 10*3/uL (0.0-0.87); Eosinophils % 1.6 % (0.00-10.9); Hematocrit 29.9 VOL% (35.7-47.0); Hemoglobin 9.3 GM/DL (12.0-16.0); Immature Granulocytes Absolute 0.08 #; Lymphocytes # 1.2 10*3/uL (1.4-4.0); Lymphocytes % 15.8 % (21.3-54.2); Mean Corpuscular HGB Conc 31.1 GM/DL (32-36); Mean Corpuscular Volume 91.2 FL (87-102); Monocytes % 9.9 % (1.7-12.7); Neutrophils % 70.9 % (38.7-73.9); Platelet Count 247 T/CUMM (130-400); Red Blood Count 3.28 MC/CUMM (3.8-5.5); Red Cell Distribution Width 15.7 % (9.3-17.3); White Blood Count 7.7 T/CUMM (4-12)
[2019-03-13 05:50] LABS: Calcium 8.5 MG/DL (8.5-10.1); Osmolality,Calculated 275.5 MOS/KG (273-304)
[2019-03-13] MEDS: PANTOPRAZOLE 40 MG TABLET PO SCH (10:32)
[2019-03-13] MEDS: LACTATED RINGERS 1,000 ML IV SCH (12:53)
[2019-03-13] MEDS ORDERED: fentaNYL 100 MCG/2 ML VIAL ONE (13:42)
[2019-03-13] MEDS ORDERED: MIDAZOLAM 2 MG/2 ML VIAL ONE ×2 (16:17→19:33)
[2019-03-13] MEDS ORDERED: ePHEDrine 50 MG/ML AMP ONE (16:19)
[2019-03-13] MEDS ORDERED: ALBUMIN 25% 12.5 GM/50 ML VIAL IV ONE (16:19)
[2019-03-13] MEDS ORDERED: PROPOFOL 1,000 MG/100 ML BOTTLE IV ONE (16:45)
[2019-03-13] MEDS ORDERED: SEVOFLURANE 1 UNIT/15 MINUTE INH ONE ×2 (16:53→19:32)
[2019-03-13] MEDS ORDERED: ALBUTEROL INHALER 8 GM INH ONE (16:53)
[2019-03-13] MEDS ORDERED: CLINDAMYCIN INJ 900 MG in PREMIX 1 EACH IV ONE (16:54)
[2019-03-13 17:01] LABS: ABG Base Excess -8.5 MMOL/L (-2.5-2.5); ABG HCO3 17.5 MMOL/L (20-26); ABG Oxygen Saturation 98.5 % (95-100); ABG PCO2 53.7 MM HG (35-48); ABG TCO2 18.9 MMOL/L (23-27); Allen Test Positive; Pt O2 Delivery Device Ventilator
[2019-03-13 17:03] LABS: ABG PH 7.179 (7.35-7.45)
[2019-03-13] MEDS ORDERED: SODIUM BICARBONATE 50 MEQ/50 ML VIAL IV STA ×2 (17:16→17:17)
[2019-03-13] MEDS ORDERED: SODIUM BICARBONATE 50 MEQ/50 ML VIAL IV ONE (17:16)
[2019-03-13 17:18] LABS: Basophils % 0.6 % (0.0-0.8); Eosinophils # 0.1 10*3/uL (0.0-0.87); Eosinophils % 1.3 % (0.00-10.9); Hematocrit 31.6 VOL% (35.7-47.0); Hemoglobin 9.3 GM/DL (12.0-16.0); Immature Granulocytes % 0.9 %; Immature Granulocytes Absolute 0.05 #; Lymphocytes # 1.4 10*3/uL (1.4-4.0); Lymphocytes % 25.9 % (21.3-54.2); Mean Corpuscular HGB Conc 29.4 GM/DL (32-36); Mean Corpuscular Volume 97.5 FL (87-102); Mean Platelet Volume 9.5 FL (9.6-12.0); Monocytes % 5.2 % (1.7-12.7); Neutrophils % 66.1 % (38.7-73.9); Platelet Count 252 T/CUMM (130-400); Red Blood Count 3.24 MC/CUMM (3.8-5.5); Red Cell Distribution Width 15.7 % (9.3-17.3); White Blood Count 5.4 T/CUMM (4-12)
[2019-03-13 17:35] LABS: Albumin 2.9 G/DL (3.4-5.0); Bilirubin,Total 0.5 MG/DL (0.2-1.0); Calcium 8.2 MG/DL (8.5-10.1); Osmolality,Calculated 276.7 MOS/KG (273-304); Total Protein 6.3 G/DL (6.4-8.3)
[2019-03-13] MEDS: ALBUTEROL 1.25 MG/3 ML NEB RESP TX SCH (19:09)
[2019-03-13] MEDS ORDERED: PHENYLEPHRINE 50 MG/5 ML VIAL IV ONE (19:15)
[2019-03-13] MEDS: PHENYLEPHRINE DRIP 40 MG/250 ML PREMIX IV PRN (19:17)
[2019-03-13] MEDS: PROPOFOL 1,000 MG/100 ML BOTTLE IV SCH (19:20)
[2019-03-13] MEDS: LEVOFLOXACIN INJ 750 MG in PREMIX 1 EACH IV SCH (19:30)
[2019-03-13] MEDS ORDERED: PHENYLEPHRINE DRIP 20 MG/250 ML PREMIX IV ONE (19:32)
[2019-03-13] MEDS ORDERED: PHENYLEPHRINE 1 MG/10 ML SYRINGE IV ONE ×2 (19:33→23:56)
[2019-03-13] MEDS ORDERED: ROCURONIUM 100 MG/10 ML VIAL IV ONE ×2 (19:34→23:56)
[2019-03-13] MEDS ORDERED: LACTATED RINGERS 1,000 ML IV ONE ×2 (19:34→21:00)
[2019-03-13] MEDS: metroNIDAZOLE INJ 500 MG in PREMIX 1 EACH IV SCH (19:50)
[2019-03-13 19:54] LABS: Albumin 2.8 G/DL (3.4-5.0); Bilirubin,Total 0.5 MG/DL (0.2-1.0); Osmolality,Calculated 276.7 MOS/KG (273-304); Total Protein 5.6 G/DL (6.4-8.3)
[2019-03-13 20:05] LABS: ABG Base Excess -3.1 MMOL/L (-2.5-2.5); ABG HCO3 21.8 MMOL/L (20-26); ABG Oxygen Saturation 98.5 % (95-100); ABG PCO2 32.1 MM HG (35-48); ABG PH 7.417 (7.35-7.45); ABG TCO2 18.7 MMOL/L (23-27); Allen Test Positive; Pt O2 Delivery Device Ventilator
[2019-03-13 20:20] LABS: Basophils % 0.5 % (0.0-0.8); Eosinophils % 0.1 % (0.00-10.9); Hematocrit 33.8 VOL% (35.7-47.0); Hemoglobin 10.3 GM/DL (12.0-16.0); Immature Granulocytes Absolute 0.08 #; Lymphocytes # 0.5 10*3/uL (1.4-4.0); Lymphocytes % 5.8 % (21.3-54.2); Mean Corpuscular HGB Conc 30.5 GM/DL (32-36); Mean Corpuscular Volume 93.9 FL (87-102); Mean Platelet Volume 9.6 FL (9.6-12.0); Monocytes % 7.3 % (1.7-12.7); Neutrophils % 85.3 % (38.7-73.9); Platelet Count 251 T/CUMM (130-400); Red Cell Distribution Width 15.7 % (9.3-17.3); White Blood Count 8.1 T/CUMM (4-12)
[2019-03-13] MEDS ORDERED: ALBUMIN 5% 25 GM in PREMIX 1 EACH IV ONE (21:03)
[2019-03-13] MEDS: HYDROmorphone 2 MG/1 ML VIAL IV SCH ×2 (21:15→21:33)
[2019-03-13] MEDS: HYDROmorphone 2 MG/1 ML VIAL IV PRN (21:35)
[2019-03-13] MEDS ORDERED: SUCCINYLCHOLINE 200 MG/10 ML VIAL ONE (23:56)
[2019-03-13] MEDS ORDERED: PROPOFOL 200 MG/20 ML VIAL IV ONE (23:56)
[2019-03-13] MEDS ORDERED: LIDOCAINE 1% 5 ML VIAL ONE (23:56)
[2019-03-14] MEDS: ALBUTEROL 1.25 MG/3 ML NEB RESP TX SCH ×4 (00:04→20:04)
[2019-03-14] MEDS: HYDROmorphone 2 MG/1 ML VIAL IV SCH ×10 (00:28→21:16)
[2019-03-14] MEDS: HYDROmorphone 2 MG/1 ML VIAL IV PRN (02:59)
[2019-03-14] MEDS: metroNIDAZOLE INJ 500 MG in PREMIX 1 EACH IV SCH ×3 (03:00→22:10)
[2019-03-14] MEDS: PROPOFOL 1,000 MG/100 ML BOTTLE IV SCH ×3 (03:03→18:35)
[2019-03-14] MEDS: LACTATED RINGERS 1,000 ML IV SCH ×4 (03:06→18:37)
[2019-03-14 04:25] LABS: ABG Base Excess -2.7 MMOL/L (-2.5-2.5); ABG HCO3 21.8 MMOL/L (20-26); ABG Oxygen Saturation 98.7 % (95-100); ABG PCO2 36.9 MM HG (35-48); ABG PO2 192.6 MM HG (80-95); Allen Test Positive; Pt O2 Delivery Device Ventilator
[2019-03-14 04:47] LABS: Basophils % 0.4 % (0.0-0.8); Hematocrit 29.6 VOL% (35.7-47.0); Hemoglobin 9.3 GM/DL (12.0-16.0); Immature Granulocytes % 1.2 %; Immature Granulocytes Absolute 0.08 #; Lymphocytes # 0.5 10*3/uL (1.4-4.0); Lymphocytes % 7.1 % (21.3-54.2); Mean Corpuscular HGB Conc 31.4 GM/DL (32-36); Mean Corpuscular Volume 91.4 FL (87-102); Mean Platelet Volume 10.3 FL (9.6-12.0); Monocytes % 6.8 % (1.7-12.7); Neutrophils % 84.5 % (38.7-73.9); Platelet Count 254 T/CUMM (130-400); Red Blood Count 3.24 MC/CUMM (3.8-5.5); Red Cell Distribution Width 15.5 % (9.3-17.3); White Blood Count 6.8 T/CUMM (4-12)
[2019-03-14] MEDS ORDERED: ALBUMIN 5% 25 GM in PREMIX 1 EACH IV ONE (05:03)
[2019-03-14] MEDS ORDERED: LACTATED RINGERS 1,000 ML IV ONE ×3 (05:04→16:23)
[2019-03-14 05:19] LABS: Albumin 2.3 G/DL (3.4-5.0); Bilirubin,Total 0.5 MG/DL (0.2-1.0); Calcium 7.5 MG/DL (8.5-10.1); Osmolality,Calculated 272.8 MOS/KG (273-304); Total Protein 4.9 G/DL (6.4-8.3)
[2019-03-14] MEDS: PHENYLEPHRINE DRIP 40 MG/250 ML PREMIX IV PRN ×2 (06:00→17:24)
[2019-03-14] MEDS ORDERED: SEVOFLURANE 1 UNIT/15 MINUTE INH ONE (10:29)
[2019-03-14] MEDS ORDERED: MIDAZOLAM 2 MG/2 ML VIAL ONE (10:30)
[2019-03-14] MEDS ORDERED: fentaNYL 100 MCG/2 ML VIAL ONE (10:30)
[2019-03-14] MEDS ORDERED: ROCURONIUM 100 MG/10 ML VIAL IV ONE (10:30)
[2019-03-14] MEDS: LANSOPRAZOLE ODT 30 MG TABLET PO SCH (11:21)
[2019-03-14] MEDS: ENOXAPARIN 40 MG/0.4 ML SYRINGE SUBCUT SCH (11:21)
[2019-03-14] MEDS ORDERED: ALBUMIN 5% 50 GM in PREMIX 1 EACH IV ONE (16:30)
[2019-03-14 17:18] LABS: Basophils % 0.3 % (0.0-0.8); Hematocrit 29.8 VOL% (35.7-47.0); Hemoglobin 9.5 GM/DL (12.0-16.0); Immature Granulocytes % 0.8 %; Immature Granulocytes Absolute 0.09 #; Lymphocytes # 1.2 10*3/uL (1.4-4.0); Lymphocytes % 10.7 % (21.3-54.2); Mean Corpuscular HGB Conc 31.9 GM/DL (32-36); Mean Corpuscular Volume 91.1 FL (87-102); Mean Platelet Volume 9.9 FL (9.6-12.0); Monocytes % 7.9 % (1.7-12.7); Neutrophils % 80.3 % (38.7-73.9); Platelet Count 303 T/CUMM (130-400); Red Blood Count 3.27 MC/CUMM (3.8-5.5); Red Cell Distribution Width 15.8 % (9.3-17.3)
[2019-03-14 17:19] LABS: White Blood Count 10.9 T/CUMM (4-12)
[2019-03-14 17:39] LABS: Anisocytosis Slight; Band Neutrophils 2 % (0-10); Elliptocytes Few; Lymphocytes 10 % (20-55); Microcytosis Slight; Platelet Estimate Normal; Poikilocytosis Few; Reactive Lymphocytes Few; Segmented Neutrophils 83 % (50-85); Total Cells Counted 100
[2019-03-14 17:41] LABS: Polychromasia Slight
[2019-03-15 00:09] LABS: ABG Base Excess -1.8 MMOL/L (-2.5-2.5); ABG HCO3 22.9 MMOL/L (20-26); ABG Oxygen Saturation 94.9 % (95-100); ABG PCO2 33.6 MM HG (35-48); ABG PH 7.427 (7.35-7.45); ABG PO2 71.2 MM HG (80-95); ABG TCO2 20.6 MMOL/L (23-27)
[2019-03-15] MEDS: PROPOFOL 1,000 MG/100 ML BOTTLE IV SCH ×5 (00:35→18:41)
[2019-03-15] MEDS: HYDROmorphone 2 MG/1 ML VIAL IV SCH ×12 (00:36→22:50)
[2019-03-15] MEDS: LACTATED RINGERS 1,000 ML IV SCH ×4 (00:37→17:01)
[2019-03-15] MEDS: ALBUTEROL 1.25 MG/3 ML NEB RESP TX SCH ×4 (00:57→19:32)
[2019-03-15] MEDS ORDERED: LACTATED RINGERS 500 ML IV ONE (03:58)
[2019-03-15] MEDS: metroNIDAZOLE INJ 500 MG in PREMIX 1 EACH IV SCH ×3 (04:03→18:42)
[2019-03-15] MEDS: HYDROmorphone 2 MG/1 ML VIAL IV PRN (04:23)
[2019-03-15 04:38] LABS: ABG Base Excess -1.9 MMOL/L (-2.5-2.5); ABG HCO3 22.8 MMOL/L (20-26); ABG Oxygen Saturation 97.5 % (95-100); ABG PCO2 33.9 MM HG (35-48); ABG PH 7.423 (7.35-7.45); ABG PO2 92.4 MM HG (80-95); ABG TCO2 20.7 MMOL/L (23-27)
[2019-03-15 04:38] LABS: Basophils % 0.2 % (0.0-0.8); Eosinophils % 0.2 % (0.00-10.9); Hematocrit 23.8 VOL% (35.7-47.0); Hemoglobin 7.7 GM/DL (12.0-16.0); Immature Granulocytes % 0.9 %; Immature Granulocytes Absolute 0.08 #; Lymphocytes % 10.7 % (21.3-54.2); Mean Corpuscular HGB Conc 32.4 GM/DL (32-36); Mean Corpuscular Volume 90.2 FL (87-102); Mean Platelet Volume 9.9 FL (9.6-12.0); Monocytes % 9.5 % (1.7-12.7); Neutrophils % 78.5 % (38.7-73.9); Platelet Count 244 T/CUMM (130-400); Red Blood Count 2.64 MC/CUMM (3.8-5.5); Red Cell Distribution Width 15.9 % (9.3-17.3); White Blood Count 9.1 T/CUMM (4-12)
[2019-03-15 04:57] LABS: Albumin 2.6 G/DL (3.4-5.0); Bilirubin,Total 0.7 MG/DL (0.2-1.0); Calcium 7.6 MG/DL (8.5-10.1); Osmolality,Calculated 278.4 MOS/KG (273-304); Total Protein 4.6 G/DL (6.4-8.3)
[2019-03-15 05:25] LABS: Hypochromasia Slight; Lymphocytes 15 % (20-55); Metamyelocytes 1 %; Platelet Estimate Adequate; Polychromasia Few; Segmented Neutrophils 82 % (50-85); Total Cells Counted 100
[2019-03-15] MEDS ORDERED: SODIUM CHLORIDE 0.9% 1,000 ML IV PRN (06:11)
[2019-03-15] MEDS: ENOXAPARIN 40 MG/0.4 ML SYRINGE SUBCUT SCH (09:29)
[2019-03-15] MEDS: LANSOPRAZOLE ODT 30 MG TABLET PO SCH (09:30)
[2019-03-15] MEDS ORDERED: FUROSEMIDE 40 MG/4 ML VIAL IV ONE (10:30)
[2019-03-15] MEDS: PHENYLEPHRINE DRIP 40 MG/250 ML PREMIX IV PRN (10:46)
[2019-03-15 15:41] LABS: Hematocrit 29.5 VOL% (35.7-47.0); Hemoglobin 9.6 GM/DL (12.0-16.0)
[2019-03-15] MEDS: LEVOFLOXACIN INJ 750 MG in PREMIX 1 EACH IV SCH (19:30)
[2019-03-16 00:10] LABS: Hematocrit 30.3 VOL% (35.7-47.0); Hemoglobin 9.7 GM/DL (12.0-16.0)
[2019-03-16] MEDS: HYDROmorphone 2 MG/1 ML VIAL IV SCH ×4 (00:23→07:54)
[2019-03-16] MEDS: ALBUTEROL 1.25 MG/3 ML NEB RESP TX SCH ×4 (01:15→19:50)
[2019-03-16] MEDS: PROPOFOL 1,000 MG/100 ML BOTTLE IV SCH ×4 (02:17→19:38)
[2019-03-16] MEDS: LACTATED RINGERS 1,000 ML IV SCH ×6 (02:37→23:49)
[2019-03-16] MEDS: PHENYLEPHRINE DRIP 40 MG/250 ML PREMIX IV PRN (02:39)
[2019-03-16] MEDS: metroNIDAZOLE INJ 500 MG in PREMIX 1 EACH IV SCH ×3 (03:20→19:36)
[2019-03-16 04:09] LABS: ABG Base Excess -2.1 MMOL/L (-2.5-2.5); ABG HCO3 20.1 MMOL/L (20-26); ABG PCO2 26.3 MM HG (35-48); ABG PH 7.501 (7.35-7.45); ABG PO2 119.1 MM HG (80-95); ABG TCO2 20.9 MMOL/L (23-27); Basophils % 0.3 % (0.0-0.8); Eosinophils # 0.1 10*3/uL (0.0-0.87); Eosinophils % 0.6 % (0.00-10.9); Hematocrit 29.8 VOL% (35.7-47.0); Hemoglobin 9.7 GM/DL (12.0-16.0); Lymphocytes # 1.6 10*3/uL (1.4-4.0); Lymphocytes % 15.6 % (21.3-54.2); Mean Corpuscular HGB Conc 32.6 GM/DL (32-36); Mean Corpuscular Volume 88.7 FL (87-102); Mean Platelet Volume 9.7 FL (9.6-12.0); Monocytes % 6.3 % (1.7-12.7); Neutrophils % 76.2 % (38.7-73.9); Platelet Count 249 T/CUMM (130-400); Red Blood Count 3.36 MC/CUMM (3.8-5.5); Red Cell Distribution Width 15.6 % (9.3-17.3); White Blood Count 10.5 T/CUMM (4-12)
[2019-03-16 04:37] LABS: Bilirubin,Total 1.6 MG/DL (0.2-1.0); Calcium 7.1 MG/DL (8.5-10.1); Osmolality,Calculated 279.4 MOS/KG (273-304); Total Protein 4.6 G/DL (6.4-8.3)
[2019-03-16] MEDS: HYDROmorphone 2 MG/1 ML VIAL IV PRN ×3 (08:19→21:16)
[2019-03-16] MEDS: ENOXAPARIN 40 MG/0.4 ML SYRINGE SUBCUT SCH (08:22)
[2019-03-16] MEDS: POTASSIUM CHLORIDE RIDER 20 MEQ in PREMIX 1 EACH IV PRN ×2 (08:22→10:22)
[2019-03-16] MEDS: LANSOPRAZOLE ODT 30 MG TABLET PO SCH (08:23)
[2019-03-16] MEDS ORDERED: LACTATED RINGERS 1,000 ML IV ONE ×2 (10:39→23:45)
[2019-03-16] MEDS: POTASSIUM CHLORIDE RIDER 10 MEQ in PREMIX 1 EACH IV PRN (18:00)
[2019-03-16] MEDS: FUROSEMIDE 20 MG TABLET PO SCH (21:17)
[2019-03-17] MEDS: ALBUTEROL 1.25 MG/3 ML NEB RESP TX SCH ×4 (00:09→19:29)
[2019-03-17] MEDS: metroNIDAZOLE INJ 500 MG in PREMIX 1 EACH IV SCH ×3 (02:30→19:02)
[2019-03-17 04:34] LABS: ABG Base Excess -2.9 MMOL/L (-2.5-2.5); ABG HCO3 20.6 MMOL/L (20-26); ABG Oxygen Saturation 98.1 % (95-100); ABG PCO2 31.4 MM HG (35-48); ABG PH 7.435 (7.35-7.45); ABG PO2 116.3 MM HG (80-95); ABG TCO2 21.6 MMOL/L (23-27)
[2019-03-17 04:40] LABS: Basophils % 0.5 % (0.0-0.8); Eosinophils # 0.2 10*3/uL (0.0-0.87); Eosinophils % 2.3 % (0.00-10.9); Hematocrit 31.4 VOL% (35.7-47.0); Hemoglobin 9.7 GM/DL (12.0-16.0); Immature Granulocytes % 0.9 %; Immature Granulocytes Absolute 0.08 #; Lymphocytes # 1.4 10*3/uL (1.4-4.0); Lymphocytes % 15.9 % (21.3-54.2); Mean Corpuscular HGB Conc 30.9 GM/DL (32-36); Mean Corpuscular Volume 91.8 FL (87-102); Monocytes % 11.1 % (1.7-12.7); Neutrophils % 69.3 % (38.7-73.9); Platelet Count 215 T/CUMM (130-400); Red Blood Count 3.42 MC/CUMM (3.8-5.5); Red Cell Distribution Width 15.8 % (9.3-17.3); White Blood Count 8.6 T/CUMM (4-12)
[2019-03-17 05:07] LABS: Albumin 1.9 G/DL (3.4-5.0); Bilirubin,Total 1.3 MG/DL (0.2-1.0); Osmolality,Calculated 280.3 MOS/KG (273-304); Total Protein 4.9 G/DL (6.4-8.3)
[2019-03-17] MEDS: HYDROmorphone 2 MG/1 ML VIAL IV PRN ×3 (05:45→15:39)
[2019-03-17] MEDS ORDERED: ALBUMIN 5% 25 GM in PREMIX 1 EACH IV ONE (07:07)
[2019-03-17] MEDS: LACTATED RINGERS 1,000 ML IV SCH ×4 (07:24→22:46)
[2019-03-17 08:27] LABS: Basophils # 0.1 10*3/uL (0.0-0.2); Basophils % 0.6 % (0.0-0.8); Eosinophils # 0.2 10*3/uL (0.0-0.87); Eosinophils % 2.5 % (0.00-10.9); Hematocrit 31.8 VOL% (35.7-47.0); Hemoglobin 9.8 GM/DL (12.0-16.0); Immature Granulocytes % 0.5 %; Immature Granulocytes Absolute 0.04 #; Lymphocytes # 1.3 10*3/uL (1.4-4.0); Lymphocytes % 15.5 % (21.3-54.2); Mean Corpuscular HGB Conc 30.8 GM/DL (32-36); Mean Corpuscular Volume 92.7 FL (87-102); Mean Platelet Volume 10.1 FL (9.6-12.0); Monocytes % 10.7 % (1.7-12.7); Neutrophils % 70.2 % (38.7-73.9); Platelet Count 233 T/CUMM (130-400); Red Blood Count 3.43 MC/CUMM (3.8-5.5); Red Cell Distribution Width 15.9 % (9.3-17.3); White Blood Count 8.4 T/CUMM (4-12)
[2019-03-17] MEDS: ENOXAPARIN 40 MG/0.4 ML SYRINGE SUBCUT SCH (09:32)
[2019-03-17] MEDS: LANSOPRAZOLE ODT 30 MG TABLET PO SCH (09:32)
[2019-03-17] MEDS: FUROSEMIDE 20 MG TABLET PO SCH ×2 (09:32→20:03)
[2019-03-17] MEDS: ONDANSETRON 4 MG/2 ML VIAL IV PRN ×3 (10:22→20:08)
[2019-03-17] MEDS: PROMETHAZINE 25 MG/1 ML VIAL IM PRN ×2 (11:04→22:21)
[2019-03-17] MEDS: LEVOFLOXACIN INJ 750 MG in PREMIX 1 EACH IV SCH (18:11)
[2019-03-17] MEDS: HYDROmorphone 2 MG/1 ML VIAL IV SCH ×2 (22:46→22:47)
[2019-03-18] MEDS: HYDROmorphone 2 MG/1 ML VIAL IV PRN ×4 (00:13→21:20)
[2019-03-18] MEDS: ONDANSETRON 4 MG/2 ML VIAL IV PRN ×4 (00:13→21:18)
[2019-03-18] MEDS: ALBUTEROL 1.25 MG/3 ML NEB RESP TX SCH ×2 (00:39→06:56)
[2019-03-18] MEDS: metroNIDAZOLE INJ 500 MG in PREMIX 1 EACH IV SCH ×3 (03:08→19:40)
[2019-03-18 04:16] LABS: Basophils % 0.4 % (0.0-0.8); Eosinophils # 0.2 10*3/uL (0.0-0.87); Eosinophils % 2.2 % (0.00-10.9); Hematocrit 29.7 VOL% (35.7-47.0); Hemoglobin 9.3 GM/DL (12.0-16.0); Immature Granulocytes Absolute 0.07 #; Lymphocytes # 1.4 10*3/uL (1.4-4.0); Lymphocytes % 18.7 % (21.3-54.2); Mean Corpuscular HGB Conc 31.3 GM/DL (32-36); Mean Corpuscular Volume 91.1 FL (87-102); Mean Platelet Volume 9.1 FL (9.6-12.0); Monocytes % 12.9 % (1.7-12.7); Neutrophils % 64.8 % (38.7-73.9); Platelet Count 187 T/CUMM (130-400); Red Blood Count 3.26 MC/CUMM (3.8-5.5); Red Cell Distribution Width 15.4 % (9.3-17.3); White Blood Count 7.2 T/CUMM (4-12)
[2019-03-18 04:35] LABS: Calcium 7.6 MG/DL (8.5-10.1); Osmolality,Calculated 279.3 MOS/KG (273-304)
[2019-03-18] MEDS: POTASSIUM CHLORIDE RIDER 20 MEQ in PREMIX 1 EACH IV PRN ×2 (04:48→06:25)
[2019-03-18] MEDS: LACTATED RINGERS 1,000 ML IV SCH ×3 (06:24→19:38)
[2019-03-18] MEDS: ENOXAPARIN 40 MG/0.4 ML SYRINGE SUBCUT SCH (09:30)
[2019-03-18] MEDS: LANSOPRAZOLE ODT 30 MG TABLET PO SCH (09:30)
[2019-03-18] MEDS: FUROSEMIDE 20 MG TABLET PO SCH ×2 (09:30→20:15)
[2019-03-18] MEDS ORDERED: MAGNESIUM SULF RIDER 2 GM in PREMIX 1 EACH IV ONE (10:33)
[2019-03-18] MEDS ORDERED: BISACODYL 5 MG TABLET PO ONE (10:49)
[2019-03-19] MEDS: ONDANSETRON 4 MG/2 ML VIAL IV PRN ×3 (02:55→19:20)
[2019-03-19] MEDS: HYDROmorphone 2 MG/1 ML VIAL IV PRN ×4 (02:57→22:46)
[2019-03-19] MEDS: metroNIDAZOLE INJ 500 MG in PREMIX 1 EACH IV SCH ×3 (05:16→20:20)
[2019-03-19 05:26] LABS: Basophils % 0.4 % (0.0-0.8); Eosinophils # 0.2 10*3/uL (0.0-0.87); Eosinophils % 2.2 % (0.00-10.9); Hematocrit 31.1 VOL% (35.7-47.0); Hemoglobin 9.9 GM/DL (12.0-16.0); Immature Granulocytes % 0.9 %; Immature Granulocytes Absolute 0.09 #; Lymphocytes # 1.2 10*3/uL (1.4-4.0); Lymphocytes % 12.6 % (21.3-54.2); Mean Corpuscular HGB Conc 31.8 GM/DL (32-36); Mean Corpuscular Volume 89.6 FL (87-102); Mean Platelet Volume 10.1 FL (9.6-12.0); Monocytes % 15.3 % (1.7-12.7); Neutrophils % 68.6 % (38.7-73.9); Platelet Count 230 T/CUMM (130-400); Red Blood Count 3.47 MC/CUMM (3.8-5.5); Red Cell Distribution Width 15.4 % (9.3-17.3); White Blood Count 9.5 T/CUMM (4-12)
[2019-03-19 06:01] LABS: Calcium 7.7 MG/DL (8.5-10.1); Osmolality,Calculated 271.7 MOS/KG (273-304)
[2019-03-19] MEDS: LACTATED RINGERS 1,000 ML IV SCH ×2 (07:20→20:23)
[2019-03-19] MEDS: ENOXAPARIN 40 MG/0.4 ML SYRINGE SUBCUT SCH (09:55)
[2019-03-19] MEDS: LANSOPRAZOLE ODT 30 MG TABLET PO SCH (09:55)
[2019-03-19] MEDS: FUROSEMIDE 20 MG TABLET PO SCH (09:55)
[2019-03-19] MEDS: POTASSIUM CHLORIDE RIDER 20 MEQ in PREMIX 1 EACH IV PRN ×2 (14:27→22:48)
[2019-03-19] MEDS ORDERED: MAGNESIUM SULF RIDER 2 GM in PREMIX 1 EACH IV ONE (15:00)
[2019-03-19] MEDS: POTASSIUM CHLORIDE RIDER 10 MEQ in PREMIX 1 EACH IV PRN (18:45)
[2019-03-19] MEDS: LEVOFLOXACIN INJ 750 MG in PREMIX 1 EACH IV SCH (18:45)
[2019-03-19] MEDS ORDERED: POTASSIUM CHLORIDE RIDER 10 MEQ in PREMIX 1 EACH IV SCH (19:00)
[2019-03-20] MEDS: POTASSIUM CHLORIDE RIDER 20 MEQ in PREMIX 1 EACH IV PRN ×2 (00:50→06:04)
[2019-03-20] MEDS: metroNIDAZOLE INJ 500 MG in PREMIX 1 EACH IV SCH ×3 (02:10→18:30)
[2019-03-20 05:03] LABS: Basophils % 0.3 % (0.0-0.8); Eosinophils # 0.2 10*3/uL (0.0-0.87); Hematocrit 28.9 VOL% (35.7-47.0); Hemoglobin 9.2 GM/DL (12.0-16.0); Immature Granulocytes Absolute 0.09 #; Lymphocytes # 1.1 10*3/uL (1.4-4.0); Lymphocytes % 11.6 % (21.3-54.2); Mean Corpuscular HGB Conc 31.8 GM/DL (32-36); Mean Corpuscular Volume 89.8 FL (87-102); Mean Platelet Volume 9.5 FL (9.6-12.0); Monocytes % 14.6 % (1.7-12.7); Neutrophils % 70.5 % (38.7-73.9); Platelet Count 216 T/CUMM (130-400); Red Blood Count 3.22 MC/CUMM (3.8-5.5); Red Cell Distribution Width 14.9 % (9.3-17.3); White Blood Count 9.2 T/CUMM (4-12)
[2019-03-20] MEDS: LACTATED RINGERS 1,000 ML IV SCH ×2 (05:06→21:35)
[2019-03-20] MEDS: LANSOPRAZOLE ODT 30 MG TABLET PO SCH (09:58)
[2019-03-20] MEDS: ENOXAPARIN 40 MG/0.4 ML SYRINGE SUBCUT SCH (09:58)
[2019-03-20] MEDS: ONDANSETRON 4 MG/2 ML VIAL IV PRN (10:05)
[2019-03-21] MEDS: metroNIDAZOLE INJ 500 MG in PREMIX 1 EACH IV SCH (03:17)
[2019-03-21 06:26] LABS: Basophils % 0.4 % (0.0-0.8); Eosinophils # 0.1 10*3/uL (0.0-0.87); Eosinophils % 1.5 % (0.00-10.9); Hematocrit 29.7 VOL% (35.7-47.0); Hemoglobin 9.5 GM/DL (12.0-16.0); Immature Granulocytes % 0.8 %; Immature Granulocytes Absolute 0.08 #; Lymphocytes # 1.2 10*3/uL (1.4-4.0); Lymphocytes % 12.1 % (21.3-54.2); Mean Corpuscular Volume 89.5 FL (87-102); Mean Platelet Volume 10.1 FL (9.6-12.0); Monocytes % 14.4 % (1.7-12.7); Neutrophils % 70.8 % (38.7-73.9); Platelet Count 266 T/CUMM (130-400); Red Blood Count 3.32 MC/CUMM (3.8-5.5); Red Cell Distribution Width 15.1 % (9.3-17.3); White Blood Count 9.5 T/CUMM (4-12)
[2019-03-21 07:01] LABS: Calcium 7.9 MG/DL (8.5-10.1); Osmolality,Calculated 273.7 MOS/KG (273-304)
[2019-03-21] MEDS: ENOXAPARIN 40 MG/0.4 ML SYRINGE SUBCUT SCH (11:08)
[2019-03-21] MEDS: LANSOPRAZOLE ODT 30 MG TABLET PO SCH (11:08)
[2019-03-21 12:03] VITALS: BP 143/72
[2019-03-21] MEDS: HYDROmorphone 2 MG/1 ML VIAL IV PRN (13:33)
[2019-03-21] MEDS: ONDANSETRON 4 MG/2 ML VIAL IV PRN (13:37)
[2019-03-21] MEDS: LACTATED RINGERS 1,000 ML IV SCH (15:09)
== END 2019-03-21 17:38 | disposition hospice, home (50) | DRG 329 ==
LOC: EDUNIT# → EDBD → N.ED 21:44 → N.EDINP 21:44 → N.4E 03-12 00:52 → SUATTDRO 03-12 13:51 → N.CC 03-13 16:39 → N.4E 03-18 10:58
PROVIDERS: ADMIT Internal Medicine; ATTEND Family Medicine
PROC: COLONSP (2019-03-13 13:20)

== ENCOUNTER 2019-04-21 20:21 | Observation (INO) ==
[2019-04-21] MEDS ORDERED: ONDANSETRON 4 MG/2 ML VIAL IV STA (20:54)
[2019-04-21] MEDS ORDERED: HYDROmorphone 2 MG/1 ML VIAL IV STA (20:54)
[2019-04-21] MEDS ORDERED: PANTOPRAZOLE 40 MG VIAL IV STA (20:54)
[2019-04-21] MEDS ORDERED: SODIUM CHLORIDE 0.9% 500 ML IV STA (20:54)
[2019-04-21 21:05] LABS: Basophils # 0.1 10*3/uL (0.0-0.2); Basophils % 0.4 % (0.0-0.8); Eosinophils % 0.2 % (0.00-10.9); Hematocrit 32.2 VOL% (35.7-47.0); Hemoglobin 10.2 GM/DL (12.0-16.0); Immature Granulocytes % 0.4 %; Immature Granulocytes Absolute 0.06 #; Lymphocytes # 1.4 10*3/uL (1.4-4.0); Lymphocytes % 10.3 % (21.3-54.2); Mean Corpuscular HGB Conc 31.7 GM/DL (32-36); Mean Corpuscular Volume 84.3 FL (87-102); Mean Platelet Volume 9.9 FL (9.6-12.0); Monocytes % 7.9 % (1.7-12.7); Neutrophils % 80.8 % (38.7-73.9); Platelet Count 261 T/CUMM (130-400); Red Blood Count 3.82 MC/CUMM (3.8-5.5); Red Cell Distribution Width 14.9 % (9.3-17.3); White Blood Count 13.6 T/CUMM (4-12)
[2019-04-21 21:17] LABS: Alanine Aminotransferase < 9 U/L (13-56); Albumin 2.4 G/DL (3.4-5.0); Alkaline Phosphatase 191 U/L (45-117); Amylase 45 U/L (25-115); Aspartate Amino Transferase 61 U/L (0-37); Blood Urea Nitrogen 16 MG/DL (7-18); Calcium 8.4 MG/DL (8.5-10.1); Glucose 105 MG/DL (74-106); Total Protein 6.2 G/DL (6.4-8.3)
[2019-04-21] MEDS ORDERED: MAGNESIUM SULF RIDER 2 GM in PREMIX 1 EACH IV STA (21:55)
[2019-04-21] MEDS ORDERED: SODIUM CHLORIDE 0.9% 1,000 ML IV STA (22:34)
[2019-04-21] MEDS ORDERED: ONDANSETRON 4 MG/2 ML VIAL IV PRN (23:16)
[2019-04-21] MEDS ORDERED: ACETAMINOPHEN 325 MG TABLET PO PRN (23:16)
[2019-04-22] MEDS ORDERED: PROMETHAZINE INJ 25 MG in SODIUM CHLORIDE 0.9% 50 ML IV ONE
[2019-04-22] MEDS: SODIUM CHLORIDE 0.9% 1,000 ML IV SCH ×3 (03:18→18:00)
[2019-04-22] MEDS: HYDROmorphone 2 MG/1 ML VIAL IV PRN (08:26)
[2019-04-22] MEDS: GABAPENTIN 300 MG CAPSULE PO SCH (08:26)
[2019-04-22] MEDS ORDERED: fentaNYL 12 MCG/HR PATCH TRANSDERM SCH (09:00)
[2019-04-22] MEDS ORDERED: PROMETHAZINE 25 MG/1 ML VIAL IM PRN (09:00)
[2019-04-22] MEDS ORDERED: HYDROmorphone 2 MG/1 ML VIAL IV ONE (10:47)
[2019-04-22] MEDS: TEMAZEPAM 15 MG CAPSULE PO SCH (21:22)
[2019-04-23 04:49] LABS: Basophils # 0.1 10*3/uL (0.0-0.2); Basophils % 0.4 % (0.0-0.8); Eosinophils # 0.2 10*3/uL (0.0-0.87); Hematocrit 28.9 VOL% (35.7-47.0); Hemoglobin 8.8 GM/DL (12.0-16.0); Immature Granulocytes % 0.4 %; Immature Granulocytes Absolute 0.06 #; Lymphocytes % 19.9 % (21.3-54.2); Mean Corpuscular HGB Conc 30.4 GM/DL (32-36); Mean Corpuscular Volume 86.8 FL (87-102); Mean Platelet Volume 10.2 FL (9.6-12.0); Monocytes % 9.3 % (1.7-12.7); Platelet Count 268 T/CUMM (130-400); Red Blood Count 3.33 MC/CUMM (3.8-5.5); Red Cell Distribution Width 15.3 % (9.3-17.3); White Blood Count 14.9 T/CUMM (4-12)
[2019-04-23 05:12] LABS: Osmolality,Calculated 275.5 MOS/KG (273-304)
[2019-04-23] MEDS: SODIUM CHLORIDE 0.9% 1,000 ML IV SCH ×2 (06:50→23:08)
[2019-04-23] MEDS: POTASSIUM CHLORIDE 20 MEQ TABLET PO PRN ×3 (10:05→18:39)
[2019-04-23] MEDS: GABAPENTIN 300 MG CAPSULE PO SCH (10:05)
[2019-04-23] MEDS: HYDROmorphone 2 MG/1 ML VIAL IV PRN (10:06)
[2019-04-23] MEDS: TEMAZEPAM 15 MG CAPSULE PO SCH (23:07)
[2019-04-24] MEDS ORDERED: LEVOFLOXACIN INJ 750 MG in PREMIX 1 EACH IV ONE (08:16)
[2019-04-24 08:39] VITALS: BP 122/58
[2019-04-24] MEDS: GABAPENTIN 300 MG CAPSULE PO SCH (09:04)
[2019-04-24] MEDS ORDERED: HEPARIN LOCK FLUSH 500 UNIT/5 ML SYRINGE IV ONE (11:48)
== END 2019-04-24 12:35 | disposition hospice, home (50) ==
LOC: EDBD → EDUNIT# → N.EDINP 20:21 → N.ED 20:21 → N.4E 04-22 02:52
PROVIDERS: ADMIT Internal Medicine Geriatric Medicine; ATTEND Internal Medicine Geriatric Medicine